=== PATIENT | male | born 1990 | race Caucasian/White ===

== ENCOUNTER 2018-10-04 13:30 | Emergency (ER) | payer OTHER ==
--- NOTE | 2018-10-04 14:14 | ED Physician Documentation ---
History of Present Illness - Stated complaint Stated Complaint: ABDOMINAL PX - Chief complaint Chief Complaint: Abd Pain - History obtained from History obtained from: Patient - History of Present Illness Timing: How many days ago (9) Pain level max: 8 Pain level now: 7 - Additonal information Additional information: 28-year-old male presents to the emergency department 9 days of abdominal pain. Started in the left lower quadrant and is gradually spread across the abdomen. Has had diarrhea as well. He is also complaining of perirectal pain as well as intermittent testicular pain. No penile discharge. No change in sexual partners. Does have a history of herpes. Saw his primary care provider at the [facility], normal laboratory testing, urinalysis. He states cultures were done. Pain has been worsening since that time. No nausea or vomiting. No fevers. Nothing makes it better or worse Review of Systems Ten Systems: 10 systems reviewed and negative Constitutional: denies: Fever, Chills Cardiac: denies: Chest pain / pressure Respiratory: denies: Cough Skin: denies: Rash Musculoskeletal: denies: Neck pain, Back pain Neurologic: denies: Headache PD PAST MEDICAL HISTORY - Past Medical History Past Medical History: No - Present Medications Home Medications: Ambulatory Orders Medication Instructions Recorded Confirmed Ciprofloxacin HCl [Cipro] 500 mg PO BID #28 tablet 10/04/18 Hydrocodone/Acetaminophen 1 - 2 each PO Q6H PRN #14 tablet 10/04/18 [Hydrocodon-Acetaminophen 5-325] Valacyclovir HCl [Valacyclovir] 0 mg 10/04/18 - Allergies Allergies/Adverse Reactions: Allergies Allergy/AdvReac Type Severity Reaction Status Date / Time No Known Drug Allergies Allergy Verified 10/04/18 14:01 PD ED PE NORMAL - Vitals Vital signs reviewed: Yes - General General: Alert and oriented X 3, No acute distress - HEENT HEENT: Moist mucous membranes - Neck Neck: Supple, no meningeal sign - Cardiac Cardiac: RRR, Strong equal pulses - Respiratory Respiratory: No respiratory distress, Clear bilaterally - Abdomen Abdomen: Soft, Other (mild diffuse TTP, worse in the LLQ. no peritoneal signs) - Male Male : Other (normal testicular exam. Tender prostate on examination. Enlarged.) - Back Back: No CVA TTP, No spinal TTP - Derm Derm: Warm and dry - Extremities Extremities: No edema - Neuro Neuro: Alert and oriented X 3 Results - Vitals Vitals: Vital Signs - 24 hr 10/04/18 10/04/18 13:47 15:24 Temperature 36.1 C L 36.5 C Heart Rate 74 63 Respiratory 16 16 Rate Blood Pressure 154/88 H 148/80 H O2 Saturation 98 100 Oxygen O2 Source Room air - Labs Labs: Laboratory Tests 10/04/18 10/04/18 10/04/18 13:50 14:25 14:25 WBC 8.9 RBC 4.10 L Hgb 12.8 L Hct 36.8 L MCV 89.7 MCH 31.2 H MCHC 34.7 RDW 13.3 Plt Count 255 MPV 9.1 Neut # (Auto) 5.3 Lymph # (Auto) 2.7 [place] # (Auto) 0.8 Eos # (Auto) 0.1 Baso # (Auto) 0.0 Absolute Nucleated RBC 0.00 Nucleated RBC % 0.0 Sodium 134 L Potassium 3.5 Chloride 102 Carbon Dioxide 26 Anion Gap 6.0 BUN 15 Creatinine 1.0 Estimated GFR (MDRD) 90 Glucose 93 Calcium 8.8 Total Bilirubin 1.0 AST 23 ALT 22 Alkaline Phosphatase 74 Total Protein 7.8 Albumin 5.1 Globulin 2.7 Albumin/Globulin Ratio 1.9 Lipase 26 Urine Color YELLOW Urine Clarity CLEAR Urine pH 6.0 Ur Specific [place] <=1.005 Urine Protein NEGATIVE Urine Glucose (UA) NEGATIVE Urine Ketones NEGATIVE Urine Occult Blood NEGATIVE Urine Nitrite NEGATIVE Urine Bilirubin NEGATIVE Urine Urobilinogen 0.2 (NORMAL) Ur Leukocyte Esterase NEGATIVE Ur Microscopic Review NOT INDICATED Urine Culture Comments NOT INDICATED - Rads (name of study) CT abd/pelvis Radiology: Prelim report reviewed, EMP read contemporaneously, See rad report (Normal appendix. Otherwise normal exam) PD MEDICAL DECISION MAKING - ED course Complexity details: reviewed results, re-evaluated patient, considered differential, d/w patient ED course: 28-year-old male presents to the emergency department with what appears to be bacterial prostatitis. He has no risk factors for sexually transmitted infection. Does not have any evidence of STI at this time. We will treat him with ciprofloxacin. Patient is well-appearing, nontoxic. Afebrile. Patient counseled regarding signs and symptoms for which I believe and urgent re-ev aluation would be necessary. Patient with good understanding of and agreement to plan and is comfortable going home at this time This document was made in part using voice recognition software. While efforts are made to proofread this document, sound alike and grammatical errors may occur. Departure - Departure Disposition: 01 Home, Self Care Clinical Impression: Prostatitis Qualifiers: Prostatitis type: acute Qualified Code(s): N41.0 - Acute prostatitis Condition: Good Instructions: ED Prostatitis Follow-Up: STERLING MCGILL MD [Primary Care Provider] - Within 1 week Prescriptions: Ciprofloxacin HCl [Cipro] 500 mg PO BID #28 tablet Hydrocodone/Acetaminophen [Hydrocodon-Acetaminophen 5-325] 1 - 2 each PO Q6H PRN #14 tablet PRN Reason: pain Comments: You appear to have bacterial prostatitis today. Take the ciprofloxacin. If you are not improving in 1 week, you should follow-up with your doctor. Return if you worsen. Take all antibiotics until gone. Do not drink alcohol or drive while on narcotic pain medicine. Note that many narcotic pain relievers also contain tylenol/acetaminophen. Please ensure that your total dose of acetaminophen from all sources does not exceed 3 grams (3000mg) per day. You may constipated on this medication, take a stool softener such as "Colace" twice a day while you are on it. Also recommend a qvvs-zfl-dtkqdey laxative such as senna or MiraLAX any day that you do not have a bowel movement. If you received narcotic pain medication in the emergency department, do not drive or operate machinery for the next 24 hours.
[2018-10-04] MEDS ORDERED: IOVERSOL 320 100 ML VIAL IVP ONE (14:17)
[2018-10-04 14:37] LABS: BASOPHILS % (AUTO) 0.5 %; EOSINOPHILS # (AUTO) 0.1 10^3/uL (0.0-0.7); EOSINOPHILS % (AUTO) 1.5 %; HGB - HEMOGLOBIN 12.8 g/dL (14.0-18.0); LYMPHOCYTES # (AUTO) 2.7 10^3/uL (1.5-3.5); LYMPHOCYTES % (AUTO) 29.9 %; MEAN CORPUSCULAR HEMOGLOBIN 31.2 pg (27.0-31.0); MEAN CORPUSCULAR HGB CONC 34.7 g/dL (32.0-36.0); MEAN CORPUSCULAR VOLUME 89.7 fL (80.0-94.0); MEAN PLATELET VOLUME 9.1 fL (7.4-11.4); MONOCYTES # (AUTO) 0.8 10^3/uL (0.0-1.0); NEUTROPHILS # (AUTO) 5.3 10^3/uL (1.5-6.6); NEUTROPHILS % (AUTO) 59.1 %; PLT - PLATELET COUNT 255 10^3/uL (130-450); RED CELL DISTRIBUTION WIDTH 13.3 % (12.0-15.0); WHITE BLOOD COUNT 8.9 x10^3/uL (4.8-10.8)
[2018-10-04 14:53] LABS: ALBUMIN 5.1 g/dL (3.2-5.5); ALBUMIN/GLOBULIN RATIO 1.9 (1.0-2.2); CALCIUM 8.8 mg/dL (8.5-10.3); TOTAL PROTEIN 7.8 g/dL (6.7-8.2)
[2018-10-04 16:37] LABS: BILIRUBIN,URINE NEGATIVE (NEGATIVE); GLUCOSE, URINE (UA) NEGATIVE (NEGATIVE); KETONES,URINE (UA) NEGATIVE (NEGATIVE); LEUKOCYTE ESTERASE, URINE NEGATIVE (NEGATIVE); NITRITE,URINE NEGATIVE (NEGATIVE); OCCULT BLOOD,URINE NEGATIVE (NEGATIVE); PROTEIN,URINE NEGATIVE (NEGATIVE); UROBILINOGEN,URINE 0.2 (NORMAL) E.U./dL (NORMAL)
[2018-10-04 16:39] LABS: CLARITY,URINE CLEAR (CLEAR)
--- NOTE | 2018-10-04 16:51 | CT Report ---
Reason: diffuse abd pain, diarrhea Procedure Date: 10/04/2018 Accession Number: [id number] / [id number] Procedure: CT - Abdomen/Pelvis W CPT Code: FULL RESULT: EXAM: CT ABDOMEN AND PELVIS WITH IV CONTRAST EXAM DATE: 10/04/2018 04:03 PM. CLINICAL HISTORY: Diffuse abdominal pain, diarrhea. COMPARISONS: None. TECHNIQUE: Routine helical CT imaging was performed through the abdomen and pelvis. IV contrast: Optiray 320. Enteric contrast: No. Reconstructions: Coronal and sagittal. In accordance with CT protocol optimization, one or more of the following dose reduction techniques were utilized for this exam: automated exposure control, adjustment of mA and/or KV based on patient size, or use of iterative reconstructive technique. FINDINGS: Lung bases: No acute findings. Liver: Unremarkable. Gallbladder: Unremarkable. Bile ducts: Unremarkable. Pancreas: Unremarkable. Spleen: Unremarkable. Adrenals: Unremarkable. Kidneys: Unremarkable. Bowel: Normal appendix. No acute bowel findings are seen. No evidence for bowel wall thickening. No evidence for bowel obstruction. No free fluid or free air. Pelvis: The bladder and remaining pelvic organs appear unremarkable. No lymphadenopathy. Bones: No acute bone findings. IMPRESSION: 1. Normal appendix. No acute findings are seen. RADIA
[2018-10-04] MEDS ORDERED: CIPROFLOXACIN 250 MG TABLET PO STA (17:04)
[2018-10-04 17:12] VITALS: BP 149/92
== END 2018-10-04 17:38 | disposition home or self-care (01) ==
LOC: ED 13:30
DX: N41.0 Acute prostatitis (principal)
CPT/HCPCS: 36415; 74177; 80053; 81003; 83690; 85025; 87491; 87591; 99283; A9270; Q9967; 81001; 87086

== ENCOUNTER 2019-06-05 02:42 | Emergency (ER) | payer OTHER ==
[2019-06-05] MEDS ORDERED: cefTRIAXone 1 GM VIAL IM STA (03:14)
[2019-06-05] MEDS ORDERED: AZITHROMYCIN 250 MG TABLET PO STA (03:14)
[2019-06-05] MEDS ORDERED: LIDOCAINE 1% 2 ML VIAL MC ONE (03:14)
--- NOTE | 2019-06-05 03:20 | ED Physician Documentation ---
History of Present Illness - Stated complaint Stated Complaint: MALE - Chief complaint Chief Complaint: General - Additonal information Additional information: This is a 29-year-old male who presents with pain and burning with urination Patient had unprotected oral sex around 5 days ago with a new female partner. A few days later he began having some pain in his urethra, he has not noticed any maite discharge but he noticed that the tip of his penis feels somewhat Inflamed. He has burning in the urethra consistently. He Has a history of prostatitis which is being treated with ciprofloxacin and is under the care of a urologist for this. He states that his symptoms from the prostatitis have resolved while on the ciprofloxacin. No abdominal pain, testicular pain, or fever. No genital lesions noted. Review of Systems Constitutional: denies: Fever : reports: Dysuria PD PAST MEDICAL HISTORY - Past Medical History Derm: Herpes zoster - Past Surgical History Past Surgical History: No - Present Medications Home Medications: Ambulatory Orders Medication Instructions Recorded Confirmed Ciprofloxacin HCl [Cipro] 500 mg PO BID #28 tablet 10/04/18 Hydrocodone/Acetaminophen 1 - 2 each PO Q6H PRN #14 tablet 10/04/18 [Hydrocodon-Acetaminophen 5-325] Valacyclovir HCl [Valacyclovir] 0 mg 10/04/18 - Allergies Allergies/Adverse Reactions: Allergies Allergy/AdvReac Type Severity Reaction Status Date / Time No Known Drug Allergies Allergy Verified 06/05/19 02:51 - Social History Does the pt smoke?: No Smoking Status: Never smoker Does the pt drink ETOH?: Yes Does the pt have substance abuse?: No - Immunizations Immunizations are current?: Yes - POLST Patient has POLST: No PD ED PE NORMAL - Vitals Vital signs reviewed: Yes - General General: Alert and oriented X 3, No acute distress - HEENT HEENT: PERRL - Male Male : Other (Penis is circumcised, normal in appearance, testicles are nontender. There are no lesions on the scrotum or the penis. There is no di scharge from the urethra) - Derm Derm: Warm and dry - Neuro Neuro: Alert and oriented X 3 - Psych Psych: Normal mood, Normal affect Results - Vitals Vitals: Vital Signs - 24 hr 06/05/19 02:45 Temperature 36.4 C L Heart Rate 73 Respiratory 16 Rate Blood Pressure 127/79 O2 Saturation 100 Oxygen O2 Source Room air - Labs Labs: Laboratory Tests 06/05/19 03:20 Urine Color YELLOW Urine Clarity CLEAR Urine pH 6.0 Ur Specific [place] 1.010 Urine Protein NEGATIVE Urine Glucose (UA) NEGATIVE Urine Ketones NEGATIVE Urine Occult Blood NEGATIVE Urine Nitrite NEGATIVE Urine Bilirubin NEGATIVE Urine Urobilinogen 0.2 (NORMAL) Ur Leukocyte Esterase NEGATIVE Urine RBC None Seen Urine WBC 0-3 Ur Squamous Epith Cells FEW Squamous Urine Bacteria Rare Urine Culture Comments NOT INDICATED PD MEDICAL DECISION MAKING - ED course Complexity details: considered differential (UTI, STI, chlamydia/gonorrhea, inflammatory urethritis) ED course: Patient presents with symptoms of urethritis after having a new sexual partner and unprotected oral intercourse. His genital exam is normal in appearance. UA is unremarkable, GC chlamydia testing was sent, along with HIV and syphilis testing after discussion with the patient. He was treated empirically with ceftriaxone and azithromycin. He is already on ciprofloxacin for prostatitis which would cover most urinary tract infections. He has no signs of epididymitis, no testicular symptoms today. I discussed With him My concern for sexual transmitted infection, recommended that he avoid intercourse until the results of his labs return, discussed safe sexual practices, and recommended follow-up with his urologist and PCP if he is having any persistent symptoms. I also discussed return precautions, patient agreed with this plan was discharged home Departure - Departure Disposition: 01 Home, Self Care Clinical Impression: Urethritis Condition: Good Instructions: ED Urethritis Infec Vs Inflam Male Follow-Up: STERLING MCGILL MD [Primary Care Provider] - Within 1 week Your,Urologist [Other] (If having continued symptoms) Comments: You are seen today for burning/pain in the urethra, we have treated you for the most common infectious causes of this. You will be called if the results of your tests turn positive. Please avoid intercourse until we have the results of your tests, they should return within the next 48 to 72 hours. If you developing any new or worsening symptoms such as pain in the testicles, lesions on the penis or scrotum, or any other concerning symptoms please return to the emergency department Discharge Date/Time: 06/05/19 03:12
[2019-06-05 04:01] LABS: BILIRUBIN,URINE NEGATIVE (NEGATIVE); GLUCOSE, URINE (UA) NEGATIVE (NEGATIVE); KETONES,URINE (UA) NEGATIVE (NEGATIVE); LEUKOCYTE ESTERASE, URINE NEGATIVE (NEGATIVE); NITRITE,URINE NEGATIVE (NEGATIVE); OCCULT BLOOD,URINE NEGATIVE (NEGATIVE); PROTEIN,URINE NEGATIVE (NEGATIVE); UROBILINOGEN,URINE 0.2 (NORMAL) E.U./dL (NORMAL)
[2019-06-05 04:06] LABS: BACTERIA,URINE Rare /HPF (None Seen); CLARITY,URINE CLEAR (CLEAR); RBC,URINE None Seen /HPF (0-5); SQUAMOUS EPITHELIAL CELL,UR FEW Squamous (<= Few)
[2019-06-05 04:55] VITALS: BP 128/79
[2019-06-05 21:17] LABS: TRICHOMONAS VAGINALIS DNA NEGATIVE (NEGATIVE)
[2019-06-06 14:56] LABS: HIV AG/AB 4TH GEN NON-REACTIVE (NON-REACTIVE)
== END 2019-06-05 04:35 | disposition home or self-care (01) ==
LOC: ED 02:42
DX: N34.2 Other urethritis (principal); N41.9 Inflammatory disease of prostate, unspecified; Z20.2 Contact with and (suspected) exposure to infections with a predominantly sexual mode of transmission
CPT/HCPCS: 36415; 81001; 86780; 87389; 87491; 87591; 87661; 96372; 99282; 99283; A9270; 87086